=== PATIENT | female | born 1950 | race Two or more races ===

== ENCOUNTER → 2020-08-25 13:18 | Outpatient (CLI) | payer OTHER, SELFPAY ==
--- NOTE | 2020-08-25 10:45 | POL_PTH ---
PATIENT: ORVILLE GUPTA LOC: [facility] U#:[id number] AGE/SX: 75/F ROOM: RE08/25/[address]: Dr. Shiloh Dan MD : [id number] BED: DIS: SPEC #: [id number] RECD: 08/25/20 13:29 STATUS: EMELYN BLANCOEm #: [id number] ROGE: 08/25/20 10:[address]: Shiloh Gotti DEPT: SURGICAL PATHOLOGY RECD BY: Armond Gutierrez Tissues: Vagina, NOS Procedures: Surgery Specimen Level IV HEADER OPERATION: Polypectomy PRE-OP DIAGNOSIS: N84.1 TISSUE SUBMITTED: Vaginal polyp MICROSCOPIC DIAGNOSIS Vaginal polyp, biopsy: A polypoid fragment of fibroconnective tissue with acute and chronic inflammation and granulation tissue reaction. Negative for atypia or malignancy. See comment. PRITESH:beverly 08/27/20 COMMENT No overlying epithelium is noted. PRITESH:beverly 08/27/20 MICROSCOPIC DESCRIPTION Slides are reviewed. GROSS DESCRIPTION Received in fixative is one container labeled with the patient's name and designated polyp. The specimen consists of multiple irregular fragments of borges soft tissue that in aggregate measure 0.7 x 0.5 x 0.1 cm. The specimen is totally submitted in one cassette. / PRITESH:beverly 08/26/20 TC:2 [facility]: [id number]
== END ==
PROVIDERS: Visit Provider Obstetrics & Gynecology
DX: N84.1 Polyp of cervix uteri (principal)
CPT/HCPCS: 88305